=== PATIENT | female | born 1975 | race Caucasian/White ===

== ENCOUNTER 2018-11-09 10:14 | Emergency (ER) | payer BC ==
[2018-11-09 10:30] VITALS: BP 136/76
--- NOTE | 2018-11-09 10:37 | UC ---
Throat Pain/Nasal Shemar HPI - HPI Summary HPI Summary: sore throat, cough, and sinus pain/pressure x5 days. no fever/chills. taking advil 800mg prn, last dose today 0430. - History of Current Complaint Chief Complaint: UCRespiratory Stated Complaint: SORE THROAT Time Seen by Provider: 11/09/18 10:23 Hx Obtained From: Patient Hx Last Menstrual Period: 10/23/18 ?: No Onset/Duration: Sudden Onset, Lasting Days Severity: Severe Pain Intensity: 7 Associated Signs & Symptoms: Positive: Dysphagia, Sinus Discomfort, Nasal Discharge - Allergies/Home Medications Allergies/Adverse Reactions: Allergies Allergy/AdvReac Type Severity Reaction Status Date / Time amoxicillin [From Augmentin] Allergy GI Upset Verified 11/09/18 10:26 clavulanic acid Allergy GI Upset Verified 11/09/18 10:26 [From Augmentin] Home Medications: Home Medications Insulin GLARGINE(*) [Lantus(*)] 10 unit DAILY 11/09/18 [History Confirmed ] Levonorgestrel-Ethin Estradiol [Lillow-28 Tablet] 1 tab DAILY 11/09/18 [History Confirmed 11/09/18] Levothyroxine TAB* [Synthroid TAB*] 125 mcg PO DAILY 11/09/18 [History Confirmed 11/09/18] Lisinopril TAB* [Prinivil TAB 5 MG*] 1 tab DAILY 11/09/18 [History Confirmed ] Simvastatin [Zocor 5 MG-] 1 tab DAILY 11/09/18 [History Confirmed 11/09/18] Sitagliptin Phos/Metformin HCl [Janumet 50-1,000 mg Tablet] 1 tab DAILY [History Confirmed 11/09/18] PMH/Surg Hx/FS Hx/Imm Hx Previously Healthy: No Endocrine History: Diabetes - Surgical History Surgical History: Yes Surgery Procedure, Year, and Place: cyst removed - Family History Known Family History: Positive: Cardiac Disease, Diabetes - Social History Alcohol Use: Rare Substance Use Type: None Smoking Status (MU): Never Smoked Tobacco Review of Systems All Other Systems Reviewed And Are Negative: Yes Constitutional: Positive: Chills, Fatigue ENT: Positive: Sore Throat, Ear Ache, Sinus Congestion Respiratory: Positive: Cough Neurological: Positive: Headache Physical Exam Triage Information Reviewed: Yes Appearance: Well-Nourished, Ill-Appearing, Pain Distress Vital Signs: Initial Vital Signs Temp 98 F 11/09/18 10:27 Pulse 91 11/09/18 10:27 Resp 17 11/09/18 10:27 BP 136/76 11/09/18 10:27 Pulse Ox 100 11/09/18 10:27 Vital Signs Reviewed: Yes Eye Exam: Normal ENT: Positive: Pharyngeal erythema, TM bulging, TM red, Tonsillar swelling, Tonsillar exudate Dental Exam: Normal Neck exam: Normal Respiratory Exam: Normal Respiratory: Positive: Chest non-tender, Lungs clear, Normal breath sounds Cardiovascular Exam: Normal Cardiovascular: Positive: RRR, No Murmur, Pulses Normal Abdominal Exam: Normal Bowel Sounds: Positive: Present Musculoskeletal Exam: Normal Musculoskeletal: Positive: Strength Intact Neurological Exam: Normal Psychological Exam: Normal Skin Exam: Normal Throat Pain/Nasal Course/Dx - Course Course Of Treatment: hx obtained, exam performed ,meds reviewed, treated for bacterial pharyngitis and sinusitis with amoxicillin and diflucan per patients request as she states she gets yeast infections with ABX - Differential Dx/Diagnosis Differential Diagnosis/HQI/PQRI: Otitis Media, Pharyngitis, Sinusitis, URI Provider Diagnosis: Pharyngitis Discharge - Sign-Out/Discharge Documenting (check all that apply): Patient Departure All imaging exams completed and their final reports reviewed: No Studies - Discharge Plan Condition: Stable Disposition: HOME Prescriptions: Amoxicillin PO (*) [Amoxicillin 875 MG (*)] 875 mg PO BID #20 tab Fluconazole [Diflucan 150 MG (NF)] 150 mg PO ONCE #1 tab Patient Education Materials: Pharyngitis (ED) Referrals: Mattie Shelby NP [Primary Care Provider] - Additional Instructions: 1. Take the medication as prescribed. 2. Increase fluid intake and get plenty of rest. 3. Follow up as needed. - Billing Disposition and Condition Condition: STABLE Disposition: Home
== END 2018-11-09 10:45 | disposition home or self-care (01) ==
LOC: UCCORT 10:14
DX: J02.9 Acute pharyngitis, unspecified (principal); R05 Cough; R13.10 Dysphagia, unspecified; E11.9 Type 2 diabetes mellitus without complications; R51 Headache; Z88.0 Allergy status to penicillin; Z88.8 Allergy status to other drugs, medicaments and biological substances
CPT/HCPCS: 99212; G0463

== ENCOUNTER 2018-12-27 05:47 | Day surgery (SDC) | payer BC ==
[~2018-12-27 05:47] MED LIST: Buffered Lidocaine 1% SYRIN* 1 ML/SYRINGE INTRADERM ONE
[2018-12-27] MEDS ORDERED: Famotidine IV* 10 MG/ML 2 ML (20 mg) ONE (05:56)
[2018-12-27] MEDS ORDERED: Lactated Ringers 1000 ML Bag* 1,000 ML IV SCH (06:00)
[2018-12-27] MEDS ORDERED: Famotidine IV* 10 MG/ML 2 ML (20 mg) IV ONE (06:00)
[2018-12-27] MEDS ORDERED: Ketorolac INJ* 30 MG/ML 1 ML VIAL ONE (07:09)
[2018-12-27] MEDS ORDERED: Propofol* 10 MG/ML 20 ML BTL ONE (07:09)
[2018-12-27] MEDS ORDERED: Lidocaine 2% PF * 5 ML VIAL ONE (07:09)
[2018-12-27] MEDS ORDERED: Dexamethasone IV* 4 MG/ML 1 ML (4 MG) ONE (07:09)
[2018-12-27] MEDS ORDERED: fentaNYL* 50 MCG/ML 2 ML VIAL (100 MCG VIAL) ONE ×3 (07:09→09:00)
[2018-12-27] MEDS ORDERED: Ondansetron INJ* 2 MG/ML VIAL ONE (07:09)
[2018-12-27] MEDS ORDERED: Midazolam* 1 MG/ML 5 ML VIAL (5 MG) ONE (07:10)
[2018-12-27] MEDS ORDERED: fentaNYL* 50 MCG/ML 2 ML VIAL (100 MCG VIAL) IV PRN (07:23)
[2018-12-27] MEDS ORDERED: Naloxone* 0.4 MG/ML 1 ML VIAL IV PRN (07:23)
[2018-12-27] MEDS ORDERED: oxyCODONE/Acetamin 5/325 MG* TAB PO PRN (07:23)
[2018-12-27] MEDS ORDERED: Ondansetron INJ* 2 MG/ML VIAL IV PRN (07:23)
[2018-12-27] MEDS ORDERED: Silver Nitrate/Potassium Nitr* 1 EA STICK ONE (07:28)
[2018-12-27 10:09] VITALS: BP 132/91
--- NOTE | 2018-12-27 11:10 | OP ---
OPERATIVE NOTE: DATE OF OPERATION: 12/27/18 DATE OF : 75 SURGEON: Candy Ferrera MD. CONSUMER PRODUCT ADVISOR: None. PRE-OP DIAGNOSES: 1. Abnormal uterine bleeding. 2. Failed medical management. 3. Skin tag. POST-OP DIAGNOSES: 1. Abnormal uterine bleeding. 2. Failed medical management. 3. Skin tag. OPERATIVE PROCEDURE: D and C, hysteroscopy, NovaSure ablation, and skin tag removal. ESTIMATED BLOOD LOSS: Minimal. FLUIDS: Crystalloid. COMPLICATIONS: None. COUNTS: Correct. FINDINGS: Normal appearing uterus, approximately a 1 cm skin tag on the left mons pubis. DESCRIPTION OF PROCEDURE: After the informed consent was signed, the patient was taken to the operat ing room where she was given general anesthesia and that was found to be adequate. She was prepped a nd draped in the dorsal spine position in the [facility] stirrups. A time-out was performed. Her bl adder was drained of urine. Two speculums were placed into the vagina to the expose the cervix. The anterior lip of the cervix was grasped with a single-toothed tenaculum. The uterus was sounded to 1 1 cm. The cervix was then measured at 5 cm giving a cavity length of 6 cm. The cervix was then furt her dilated until the hysteroscope could easily be inserted. Inspection of the uterine cavity reveal ed no obvious abnormalities. Both ostia were visualized. The hysteroscope was removed. The NovaSure device was opened and assembled. This was inserted, the cavity width was measured at 4.2 cm. The ca vity assessment was done and passed and then the device was deployed for 82 seconds at a power of 139 . The device was removed and was inspected and appeared to be fully charred. The tenaculum was then removed from the cervix with good hemostasis with silver nitrate. The skin tag was removed with sci ssors with good hemostasis with silver nitrate. The patient was then placed back in the supine posit ion, taken to recovery room in stable condition. [id number]/[facility] #: [id number]
== END 2018-12-27 10:08 | disposition home or self-care (01) ==
LOC: OR 05:47
PROVIDERS: ATTEND Obstetrics & Gynecology
DX: N92.0 Excessive and frequent menstruation with regular cycle (principal); N84.0 Polyp of corpus uteri; N90.89 Other specified noninflammatory disorders of vulva and perineum; E03.9 Hypothyroidism, unspecified; I10 Essential (primary) hypertension; E11.9 Type 2 diabetes mellitus without complications; Z79.84 Long term (current) use of oral hypoglycemic drugs
CPT/HCPCS: 81025; 88304; 88305; A9270-GY; J1100; J1885; J2250; J2405; J2704; J3010